=== PATIENT | female | born 1990 | race Caucasian/White ===

== ENCOUNTER → 2022-06-14 | Outpatient (CLI) | payer OTHER ==
[~2022-06-14] MED LIST: BUSPIRONE HCL5 MG PO; NORCO 5-325 TA1 EACH PO; PAROXETINE HCL10 MG PO; ZOFRAN4 MG PO
[2022-06-14 09:29] LABS: HEMOGLOBIN 13.5 gm/dl (12.3-15.3); RED BLOOD COUNT 4.23 M/UL (4.00-5.10); WHITE BLOOD COUNT 7.6 K/UL (4.5-11.0)
== END ==
LOC: OPSV2 08:00
PROVIDERS: Obstetrics & Gynecology
DX: Z01.812 Encounter for preprocedural laboratory examination (principal); R10.2 Pelvic and perineal pain
CPT/HCPCS: 36415; 81001; 85025

== ENCOUNTER → 2022-06-25 | Day surgery (SDC) | payer OTHER ==
[~2022-06-25] MED LIST changes: +COLACE 100MG C100 MG PO; +NAPROXEN250 MG PO; +ROXICODONE TAB 55 MG PO
== END | disposition home or self-care (01) ==
LOC: OR 05:30
DX: N72 Inflammatory disease of cervix uteri (principal); N93.9 Abnormal uterine and vaginal bleeding, unspecified; N85.2 Hypertrophy of uterus; N32.89 Other specified disorders of bladder; E66.9 Obesity, unspecified; F41.9 Anxiety disorder, unspecified; Z68.32 Body mass index [BMI] 32.0-32.9, adult
CPT/HCPCS: J0690; J1100; J1885; J2001; J2250; J2405; J2704; J2795; J3010